=== PATIENT | male | born 1975 | race Two or more races ===

== ENCOUNTER 2022-04-01 12:30 | Emergency (ER) | payer OTHER ==
[~2022-04-01] VITALS: Ht 175.3 cm; Wt 131.5 kg
[2022-04-01] MEDS ORDERED: PROAIR RESPICL90 MCG IH (13:00)
[2022-04-01] MEDS ORDERED: ADVAIR 100-501 EACH IH (13:00)
[2022-04-01] MEDS ORDERED: METFORMIN HCL1000 M2 PO (13:01)
[2022-04-01] MEDS ORDERED: SINGULAIR10 MG PO (13:01)
== END 2022-04-01 17:53 | disposition home or self-care (01) ==
LOC: ER 12:30
DX: N48.1 Balanitis (principal); E11.65 Type 2 diabetes mellitus with hyperglycemia; Z88.6 Allergy status to analgesic agent; Z88.0 Allergy status to penicillin; Z91.013 Allergy to seafood